=== PATIENT | female | born 1955 | race Caucasian/White ===

== ENCOUNTER 2017-07-22 08:19 | Day surgery (SDC) | payer BC ==
[~2017-07-22 08:19] MED LIST: ACETAMINOPHEN 1,000 MG/100 ML BTL IV ONE; CEFAZOLIN 2 Gram 2 GM/50 ML BAG IVPB ONE
[2017-07-22] MEDS ORDERED: METHYLPREDNISOLONE 40MG/VIAL IM ONE ×2 (08:20)
[2017-07-22] MEDS ORDERED: PROPOFOL 10 MG/ML VIAL IV ONE (08:20)
[2017-07-22] MEDS ORDERED: ONDANSETRON HCL IV 4 MG/2 ML VIAL IVP ONE (08:20)
[2017-07-22] MEDS ORDERED: BUPIVACAINE 0.5% W/EPI MPF 30 ML VIAL IVP ONE (08:20)
[2017-07-22] MEDS ORDERED: MIDAZOLAM HCL 2MG/2ML VIAL IV ONE (08:20)
[2017-07-22] MEDS ORDERED: SEVOFLURANE 250 ML INH ONE (08:20)
[2017-07-22] MEDS ORDERED: FENTANYL PF 100MCG/2ML VIAL IV ONE (08:20)
[2017-07-22] MEDS ORDERED: MORPHINE SULFATE 5 MG/ML PFS IVP ONE (08:20)
[2017-07-22] MEDS ORDERED: LIDOCAINE 2% MDV (20MG/ML) 20ML VIAL IV ONE (08:20)
[2017-07-22] MEDS ORDERED: KETOROLAC 30 MG/ML VIAL IVP ONE (08:20)
--- NOTE | 2017-07-23 10:39 | Operative Note ---
DATE: 07/22/2017 PREOPERATIVE DIAGNOSIS: INTERNAL DERANGEMENT OF THE RIGHT KNEE. POSTOPERATIVE DIAGNOSES: 1. DIFFUSE SYNOVITIS. 2. GRADE 3 CHONDROMALACIA MEDIAL FEMORAL CONDYLE. PROCEDURE: 1. RIGHT KNEE ARTHROSCOPY WITH SYNOVECTOMY. 2. RIGHT KNEE ARTHROSCOPY WITH CHONDROPLASTY OF THE MEDIAL FEMORAL CONDYLE. STAFF SURGEON: DANTE SALCEDO M.D. ANESTHESIA: GENERAL. PREPARATION: CHLORAPREP. INDIVIDUAL CONSIDERATIONS: NONE. PROCEDURE: The patient was taken to the Operating Room and placed supine on the operating table. She had a successful induction of a general anesthetic. Her right lower extremity was prepped and draped in the usual fashion. The patient had superolateral inflow cannula placed. The skin was infiltrated with 0.5% Marcaine with Epinephrine prior. A clear effusion was drained. The knee was inflated with normal saline. An inferior medial and inferior lateral portal were made in a similar fashion. The arthroscope was introduced through the inferior lateral portal up to the pouch. The patient had diffuse synovitis in the pouch and both gutters. This was debrided out with a shaver. Medially, the medial femoral condyle had grade 3 changes especially at the extreme of flexion at 90 degrees where it was peeling, which was smoothed off with a shaver. Tibial plateau medially was intact. The medial meniscus was intact. Cruciates were normal, lateral compartment structures were well seen and probed and found to be normal, and the patellofemoral compartment show no real significant synovitis. After irrigation, the portals were closed with allie and 20 mL of 0.50% Marcaine with Epinephrine along with 80 mg of DepoMedrol were injected into the knee and a sterile Bulkee compressive dressing was applied. The patient tolerated the procedure well. Needle and sponge counts were correct. Estimated blood loss was minimal and she was taken back to Recovery in good condition. There were no complications. cc: Dr. Arron House JOB NUMBER: [id number] [facility]
== END 2017-07-22 11:20 | disposition home or self-care (01) ==
LOC: SUR 08:19
PROVIDERS: ATTEND Orthopaedic Surgery
DX: M94.261 Chondromalacia, right knee (principal)
CPT/HCPCS: 29877; 01400; J1885; J2405; J3010; J0690; J2270; J1030